=== PATIENT | female | born 1955 | race Caucasian/White ===

== ENCOUNTER → 2017-01-16 | Outpatient (CLI) | payer BC | LOC: MC.RAD 13:00 | DX: Z12.39 Encounter for other screening for malignant neoplasm of breast (principal) ==

== ENCOUNTER 2018-11-04 14:46 | Outpatient (RCR) | payer SELFPAY | END 2018-11-07 | disposition home or self-care (01) | LOC: COL.CR | DX: Z02.89 Encounter for other administrative examinations (principal) ==

== ENCOUNTER 2019-02-12 11:52 | Outpatient (RCR) | payer SELFPAY | END 2019-02-16 | disposition home or self-care (01) | LOC: COL.CR | DX: Z02.89 Encounter for other administrative examinations (principal) ==

== ENCOUNTER 2019-05-16 14:52 | Outpatient (RCR) | payer SELFPAY | END 2019-05-20 | disposition home or self-care (01) | LOC: COL.CR | DX: Z02.89 Encounter for other administrative examinations (principal) ==

== ENCOUNTER 2019-08-18 13:06 | Outpatient (RCR) | payer SELFPAY | END 2019-08-19 | disposition home or self-care (01) | LOC: COL.CR | DX: Z02.89 Encounter for other administrative examinations (principal) ==

== ENCOUNTER 2019-11-03 15:47 | Outpatient (RCR) | payer SELFPAY | END 2019-11-16 | disposition home or self-care (01) | LOC: COL.CR | DX: Z02.89 Encounter for other administrative examinations (principal) ==

== ENCOUNTER 2020-04-02 15:03 | Outpatient (RCR) | payer SELFPAY | END 2020-04-29 | disposition home or self-care (01) | LOC: COL.CR | DX: Z02.89 Encounter for other administrative examinations (principal) ==

== ENCOUNTER 2020-07-09 12:20 | Outpatient (RCR) | payer SELFPAY | END 2020-08-01 | disposition home or self-care (01) | LOC: COL.CR | DX: Z02.89 Encounter for other administrative examinations (principal) ==

== ENCOUNTER 2020-10-29 14:48 | Outpatient (RCR) | payer SELFPAY | END 2020-10-31 | disposition home or self-care (01) | LOC: COL.CR | DX: Z02.89 Encounter for other administrative examinations (principal) ==

== ENCOUNTER 2021-01-28 17:05 | Outpatient (RCR) | payer SELFPAY | END 2021-01-30 | disposition home or self-care (01) | LOC: COL.CR | DX: Z02.89 Encounter for other administrative examinations (principal) ==

== ENCOUNTER → 2021-11-23 | Outpatient (CLI) | payer MEDICARE, BC | LOC: MC.RAD 09:35 | DX: Z12.31 Encounter for screening mammogram for malignant neoplasm of breast (principal) ==

== ENCOUNTER 2021-11-30 14:42 | Outpatient (RCR) | payer SELFPAY | END 2021-12-01 | LOC: COL.CR | DX: Z29.8 Encounter for other specified prophylactic measures (principal) ==

== ENCOUNTER 2021-12-26 17:07 | Outpatient (RCR) | payer SELFPAY | END 2021-12-31 | LOC: COL.CR | DX: Z29.8 Encounter for other specified prophylactic measures (principal) ==

== ENCOUNTER 2022-01-27 14:28 | Outpatient (RCR) | payer SELFPAY | END 2022-01-31 | LOC: COL.CR | DX: Z29.8 Encounter for other specified prophylactic measures (principal) ==

== ENCOUNTER 2022-03-01 14:47 | Outpatient (RCR) | payer SELFPAY | END 2022-03-02 | LOC: COL.CR | DX: Z29.8 Encounter for other specified prophylactic measures (principal) ==

== ENCOUNTER 2022-03-15 14:39 | Outpatient (RCR) | payer SELFPAY ==
[2022-03-21] MEDS ORDERED: FLOMAX 0.40.4 MG/CAP PO (22:30)
[2022-03-21] MEDS ORDERED: MACROBID 1100 MG/CAP PO (22:30)
[2022-03-21] MEDS ORDERED: LACTAID3000 UNIT PO (22:30)
[2022-03-21] MEDS ORDERED: AMITRIPTYLINE H50 M1 PO (22:31)
[2022-03-21] MEDS ORDERED: SINGULAIR 110 MG/TAB PO (22:31)
[2022-03-21] MEDS ORDERED: CALCIUM 600MG+D1 TAB PO (22:31)
[2022-03-21] MEDS ORDERED: ATIVAN 1MG T1 MG/TAB PO (22:31)
[2022-03-21] MEDS ORDERED: SYNTHROID0.088 MG/T PO (22:31)
[2022-03-27] MEDS ORDERED: MOTRIN 600600 MG/TAB PO (14:18)
[2022-03-27] MEDS ORDERED: NORCO 325 MG-51 TAB PO (14:19)
[2022-03-27] MEDS ORDERED: COLACE 100100 MG/CAP PO (14:19)
[2022-03-27] MEDS ORDERED: INVANZ INJ1 G/VIAL IV (14:21)
== END 2022-04-02 ==
LOC: COL.CR
DX: Z29.8 Encounter for other specified prophylactic measures (principal)

== ENCOUNTER 2022-03-21 20:29 | Inpatient (IN) | payer MEDICARE, BC ==
[~2022-03-21] VITALS: Ht 167.6 cm; Wt 57.3 kg
[2022-03-21 20:44] LABS: HEMOGLOBIN 11.4 g/dl (12.5-16.0); MEAN CELL VOLUME 93 fl (80.0-100.0); MEAN CORPUSCULAR HEMOGLOBIN 32 pg (27-31); MEAN CORPUSCULAR HGB CONC 34 g/dl (33.0-37.0); MEAN PLATELET VOLUME 8.7 fl (7.4-10.4); PLATELET COUNT 232 K/mm3 (130-400); RED BLOOD COUNT 3.59 M/mm3 (4.10-5.30); REDCELL DISTRIBUTION WIDTH-CV 12.3 % (11.5-14.5)
[2022-03-21 20:52] LABS: HEMATOCRIT 33.2 % (37.0-47.0)
[2022-03-21 20:59] LABS: ALANINE AMINOTRANSFERASE 13 U/L (0-55); ALBUMIN 2.9 gm/dL (3.4-4.8); ALKALINE PHOSPHATASE 58 U/L (40-150); ANION GAP 12 mmol/L (7-16); AST,SGOT 13 U/L (5-34); BILIRUBIN,TOTAL 1.4 mg/dL (0.2-1.2); CALCIUM 8.2 mg/dL (8.4-10.2); CARBON DIOXIDE 20 mmol/L (23-31); CHLORIDE 99 mmol/L (98-107); CREATININE, serum 0.73 mg/dL (0.57-1.11); GLUCOSE 94 mg/dL (70-99); POTASSIUM 3.7 mmol/L (3.5-4.5); SODIUM 131 mmol/L (136-145); TOTAL PROTEIN 6.1 gm/dL (6.2-8.1)
[2022-03-21 21:04] LABS: TROPONIN-I < 0.010 ng/mL (0.00-0.033)
[2022-03-21 21:14] LABS: COLLECTION METHOD CLEAN CATCH
[2022-03-21 21:19] LABS: BLOOD UREA NITROGEN 14 mg/dL (10-20)
[2022-03-21 21:25] LABS: MUCOUS Present (NOT PRESENT); PH 5 (5-8); SQUAMOUS EPITHELIAL 0-2 /hpf (0-10); URINE APPEARANCE Hazy (CLEAR/HAZY); URINE BACTERIA None Seen /hpf (NONE SEEN); URINE BLOOD 2+ (NEGATIVE); URINE COLOR Yellow (YELLOW); URINE GLUCOSE Negative (NEGATIVE); URINE KETONE 1+ (NEGATIVE); URINE NITRATE Negative (NEGATIVE); URINE PROTEIN(semi-quant) 1+ (NEGATIVE); URINE UROBILINOGEN Negative (NEGATIVE)
[2022-03-21 22:07] LABS: BAND 8 % (0-10); LYMPHOCYTE 9 % (20.0-51.0); NEUTROPHILS 80 % (42.0-75.2); PLATELET ESTIMATE NORMAL (NORMAL)
[2022-03-21] MEDS ORDERED: FLOMAX 0.40.4 MG/CAP PO (22:30)
[2022-03-21] MEDS ORDERED: LACTAID3000 UNIT PO (22:30)
[2022-03-21] MEDS ORDERED: MACROBID 1100 MG/CAP PO (22:30)
[2022-03-21] MEDS ORDERED: SINGULAIR 110 MG/TAB PO (22:31)
[2022-03-21] MEDS ORDERED: SYNTHROID0.088 MG/T PO (22:31)
[2022-03-21] MEDS ORDERED: AMITRIPTYLINE H50 M1 PO (22:31)
[2022-03-21] MEDS ORDERED: CALCIUM 600MG+D1 TAB PO (22:31)
[2022-03-21] MEDS ORDERED: ATIVAN 1MG T1 MG/TAB PO (22:31)
[2022-03-21 23:33] VITALS: BP 90/50; PULSE 98; TEMP 99.2
--- NOTE | 2022-03-21 23:50 | NUR ---
THE PATIENT ARRIVED FROM ED AT THIS TIME. UPON ASSESSMENT, THE PATIENT HAD FLAGYL RUNNING INTO THE RIGHT FOREARM. FROM THE IV SITE TO HER FINGER TIPS APPEARED THOUGH SHE HAD A RED GLOVE ON. STOPPED THE INFUSION, CONTACTED DR. KERN WHO ORDERED BENADRYL AND PEPCID. THE PATIENT DENIED ANY PAIN OR DISCOMFORT AFTER THAT TIME. SHE DID STATE HAVING SOME ABDOMINAL PAIN, BUT NOT SEVERE DUE TO LAYING STILL IN BED. NO OTHER CONCERNS, WILL CONTINUE TO MONITOR.
[2022-03-22] VITALS (14 sets, daily range): BP systolic 89–122; BP diastolic 39–61; PULSE 86–98; TEMP 97.8–98.5
--- NOTE | 2022-03-22 07:00 | NUR ---
THE PATIENT HAD UNEVENTFUL NIGHT AFTER THE ALLERGIC REACTION TO FLAGYL. THIS MEDICATION WAS ADDED TO THE PATIENT'S ALLERGY LIST. DR. KERN PLANS TO SEE THIS PATIENT THIS MORNING FOR POSSIBLE LAP APPY. NO OTHER CONCERNS. REPORT GIVEN TO HARRY WEBB.
--- NOTE | 2022-03-22 08:00 | NUR ---
Shift assessment completed. Pt lying down in bed on right side due to abdominal pain. Peripheral line on right forearm CDI, no redness or edema. Folley catheter with clear, yellow urine secured on right leg. Pt instructed to remain NPO due to abdominal procedure. Call light within reach.
--- NOTE | 2022-03-22 10:27 | NUR ---
Initial visit; Patient thanked Hot Cell Technician for looking in on her. She is in a great deal of pain at this time. Hot Cell Technician will keep her in her prayers and will follow up when possible.
--- NOTE | 2022-03-22 15:55 | NUR ---
School Commissioner entered patient's room and patient was asleep as she had surgery earlier today. SW introduced herself to patient's , Star and asked him if she can ask him some intake questions. Star stated "I can't talk" and pointed to his head. RASHAWN advised she will return when patient is awake. RASHAWN spoke with RN who advised Star has history of stroke and has aphasia. Patient is normally independent, alert and oriented however is just drowsy from surgery. RASHAWN will follow up at a later time.
--- NOTE | 2022-03-22 18:00 | NUR ---
Patient has had an eventful day. Lap appy preformed. 3 incisions noted. Two incisions closed with surgical glue. Incisions well approximated with no signs of complications. 3rd incision has PRAVEENA drain inserted with a gauze dressing. Serosanguineous drainage noted. Beard catheter in place, securement device in place, no kinks in tubing. PRN tylenol given once this shift for abd pain rated a 3/10. Dynamap used to complete post op vitals. VSS. Patient drowsy but oriented. Patient currently resting in bed, at the bedside. Call light in reach.
[2022-03-23 07:28] VITALS: BP 127/68; PULSE 86; TEMP 98.2
--- NOTE | 2022-03-23 09:16 | NUR ---
Digital Imaging Technician met with patient to discuss discharge planning. Patient is tearful and advised her pain is making her "weepy". Patient has also had a lot of stressful events recently including her 's stroke and her mother's . Patient lives in [place] with her , Star and advised her two daughters Gila (ph#[phone]) and Era (ph#[phone]) live out of state however they are in town visiting right now. Patient sees Dr. Lopez for primary care and obtains medications from [facility] with no difficulties. Patient does not use any DME and is independent with ADLS. Patient thinks she has DPOA-HC at home. Discharge Plan: Home
[2022-03-23 11:34] VITALS: BP 122/90; PULSE 88; TEMP 98.4
[2022-03-23 13:45] LABS: BASO % 0.2 % (0.0-2.0); EOS % 0.1 % (0.0-4.0); GRAN % 83.4 % (42.2-75.2); HEMOGLOBIN 10.9 g/dl (12.5-16.0); LYMPH # 1.3 K/mm3 (1.2-3.4); LYMPH % 9.5 % (20.0-51.0); MEAN CELL VOLUME 94 fl (80.0-100.0); MEAN CORPUSCULAR HEMOGLOBIN 31 pg (27-31); MEAN CORPUSCULAR HGB CONC 34 g/dl (33.0-37.0); MONO # 0.8 K/mm3 (0.1-0.6); MONO % 6.3 % (1.7-9.3); PLATELET COUNT 271 K/mm3 (130-400); RED BLOOD COUNT 3.47 M/mm3 (4.10-5.30); REDCELL DISTRIBUTION WIDTH-CV 12.6 % (11.5-14.5)
[2022-03-23 13:46] LABS: HEMATOCRIT 32.5 % (37.0-47.0)
[2022-03-23 13:59] LABS: ALBUMIN 2.3 gm/dL (3.4-4.8); BILIRUBIN,TOTAL 0.5 mg/dL (0.2-1.2); CALCIUM 8.4 mg/dL (8.4-10.2); CREATININE, serum 0.58 mg/dL (0.57-1.11); POTASSIUM 4.3 mmol/L (3.5-4.5); TOTAL PROTEIN 5.8 gm/dL (6.2-8.1)
[2022-03-23 16:03] VITALS: BP 130/66; PULSE 90; TEMP 98
--- NOTE | 2022-03-23 17:00 | NUR ---
PATIENT TAKEN DOWN TO ED BY PCT TO VISIT WITH THAT IS IN THE ER A PATIENT AND BEING FLOWN OUT SOON. HOUSE SUP AWARE.
[2022-03-23 19:41] VITALS: BP 145/67; PULSE 86; TEMP 98.1
[2022-03-23 23:55] VITALS: BP 148/74; PULSE 77; TEMP 98.5
[2022-03-24 04:27] VITALS: BP 140/77; PULSE 88; TEMP 98.2
[2022-03-24 08:01] VITALS: BP 142/72; PULSE 81; TEMP 97.8
[2022-03-24 08:46] LABS: BASO % 0.1 % (0.0-2.0); EOS # 0.2 K/mm3 (0.0-0.7); EOS % 2.2 % (0.0-4.0); GRAN # 6.6 K/mm3 (1.4-6.5); GRAN % 70.8 % (42.2-75.2); HEMATOCRIT 35.5 % (37.0-47.0); LYMPH # 1.6 K/mm3 (1.2-3.4); LYMPH % 17.6 % (20.0-51.0); MEAN CELL VOLUME 93 fl (80.0-100.0); MEAN CORPUSCULAR HEMOGLOBIN 32 pg (27-31); MEAN CORPUSCULAR HGB CONC 34 g/dl (33.0-37.0); MONO # 0.8 K/mm3 (0.1-0.6); PLATELET COUNT 262 K/mm3 (130-400); REDCELL DISTRIBUTION WIDTH-CV 12.8 % (11.5-14.5)
[2022-03-24 09:00] LABS: ALBUMIN 2.3 gm/dL (3.4-4.8); CALCIUM 8.3 mg/dL (8.4-10.2); CREATININE, serum 0.59 mg/dL (0.57-1.11); PHOSPHOROUS 1.8 mg/dL (2.3-4.7); POTASSIUM 3.9 mmol/L (3.5-4.5)
--- NOTE | 2022-03-24 09:17 | NUR ---
Initial visit; Patient thanked Repossessor for looking in on her and offering her God's blessings. Patient was using telephone. Repossessor will follow-up.
--- NOTE | 2022-03-24 10:28 | NUR ---
PT RESTING IN BED WITH HOB ELEVATED, TAYLOR CATHETER HAS BEEN REMOVED, SCDs IN PLACE. NORCO ADMINISTERED FOR ABDOMINAL PAIN. PT STATES THAT PAIN IS EXACERBATED BY MOVEMENT. 2 LAP INCISIONS ARE WELL APPROXIMATED WITH SOME BRUISING. PRAVEENA DRAIN TO BULB SUCTION WITH SOME SHADOW DRAINAGE SEEN ON DRESSING. PRAVEENA HAS HAD LARGE AMOUNTS OF SEROUS DRAINAGE. IVF INFUSING. PT DENIES NEEDS. CALL LIGHT WITHIN REACH.
[2022-03-24 11:33] VITALS: BP 149/79; PULSE 85; TEMP 98.2
--- NOTE | 2022-03-24 13:30 | NUR ---
DRAIN SPONGE AROUND PRAVEENA DRAIN HAS BEEN CHANGED, WAS SATURATED IN SEROSANGUINEOUS DRAINAGE. IVF INFUSING. PT IS TEARFUL R/T FAMILY ISSUES, IS OFFERED [employer], DENIES @ THIS TIME.
--- NOTE | 2022-03-24 15:03 | NUR ---
Steel Die Printer met with patient who advised her was sent to Medical yesterday. Patient is tearful and states she has been through a lot recently. Patient stated Gabrielle Steel Die Printer at is working on rehab placement (ph#[phone]) and patient requested RASHAWN call to pending sale to [facility]. RASHAWN contacted Gabrielle and left a message.
[2022-03-24 16:00] VITALS: BP 172/80; PULSE 89; TEMP 97.3
--- NOTE | 2022-03-24 16:00 | NUR ---
PT'S DAUGHTER HAS CALLED, STATES THAT SHE IS UPSET THAT SHE WAS NOT CALLED WHEN DECISION WAS MADE TO PUT PICC LINE IN PLACE FOR IV ANTIBIOTICS. PT'S DAUGHTER CRYSTAL STATES THAT SHE FEELS THOUGH HER MOTHER IS NOT ORIENTED ENOUGH TO MAKE DECISIONS, THAT SHE WAS UNABLE TO RECALL DR. KERN TALKING TO HER YESTERDAY. PT HAS BEEN ALERT ET ORIENTED X4 TODAY BUT HAS BEEN TEARFUL ABOUT FAMILY NEWS, HAS NOT BEEN NOTED TO BE FORGETFUL. DR. KERN HAS BEEN CALLED ET STATES THAT HE WILL CALL ET TALK TO PT'S DAUGHTER CRYSTAL, PER HER REQUEST.
--- NOTE | 2022-03-24 16:13 | NUR ---
PT HAS NOT YET VOIDED. AIV IS IN PT ROOM INSERTING PICC @ THIS TIME, WILL BLADDER SCAN PT WHEN FINISHED. NEW PHONE ORDERS RECEIVED FROM DR. KERN TO INSERT TAYLOR CATHETER IF PT BLADDER SCAN IS >500 ML OR IF PT HAS NOT VOIDED IN 8 HRS.
--- NOTE | 2022-03-24 16:42 | NUR ---
PT HAS VOIDED IN TOILET WITHOUT DIFFICULTIES, 500 ML, URINE IS CLEAR ET YELLOW. PT IS BEING ASSISTED TO AMBULATE IN HALLWAY WITH DAUGHTER @ THIS TIME. IVF INFUSING. PRAVEENA DRAIN IS IN PLACE, DRAINAGE IS SEROUS YELLOW. INCISIONS ARE WELL APPROXIMATED. PT HAS BEEN GIVEN PAIN MEDICATION, DENIES NAUSEA. CALL LIGHT WITHIN REACH.
[2022-03-24 22:05] VITALS: BP 139/71; PULSE 86; TEMP 98
--- NOTE | 2022-03-24 22:59 | NUR ---
Patient assessed around 2029. Given PRN [place] for pain. Ambulated to bathroom, slow, steady gait. IV fluids continue per orders. PRAVEENA drain to abdomen, serous drainage. Urinating, clear yellow urine. Patient voices no questions, needs, or concerns at this time. In bed with call light within reach.
[2022-03-25] VITALS (7 sets, daily range): BP systolic 136–154; BP diastolic 65–79; PULSE 67–99; TEMP 97.8–99.2
--- NOTE | 2022-03-25 05:10 | NUR ---
Patient given PRN [place] twice during the night as requested for pain to abdomen. Has had about 225 mls of output from PRAVEENA drain this shift. Continues on IV fluids and ABX per orders. Patient reports that PRN Ativan was effective with helping with anxiety and patient was able to get some rest during the night. Has been able to urinate this shift. Voices no questions, needs, or concerns at this time. In bed with call light within reach.
[2022-03-25 06:16] LABS: BASO % 0.4 % (0.0-2.0); EOS # 0.4 K/mm3 (0.0-0.7); EOS % 3.6 % (0.0-4.0); GRAN # 6.9 K/mm3 (1.4-6.5); GRAN % 65.4 % (42.2-75.2); LYMPH % 19.2 % (20.0-51.0); MEAN CELL VOLUME 95 fl (80.0-100.0); MEAN CORPUSCULAR HEMOGLOBIN 31 pg (27-31); MEAN CORPUSCULAR HGB CONC 33 g/dl (33.0-37.0); MEAN PLATELET VOLUME 9.3 fl (7.4-10.4); MONO # 1.1 K/mm3 (0.1-0.6); MONO % 10.5 % (1.7-9.3); PLATELET COUNT 319 K/mm3 (130-400); RED BLOOD COUNT 3.83 M/mm3 (4.10-5.30); REDCELL DISTRIBUTION WIDTH-CV 12.7 % (11.5-14.5)
[2022-03-25 06:21] LABS: HEMATOCRIT 36.2 % (37.0-47.0)
[2022-03-25 06:38] LABS: ALBUMIN 2.4 gm/dL (3.4-4.8); CALCIUM 8.3 mg/dL (8.4-10.2); CREATININE, serum 0.55 mg/dL (0.57-1.11); PHOSPHOROUS 2.9 mg/dL (2.3-4.7); POTASSIUM 3.9 mmol/L (3.5-4.5)
--- NOTE | 2022-03-25 17:40 | NUR ---
PT HAD A CALM DAY,MEDS GIVEN PRESCRIBED NO ADVERSE REACTION NOTED, PT NOW ON FULL LIQUID DIET.COMPLAINTS OF ABDOMINAL PAIN RAISED PRN PAIN MEDS GIVEN PRESCRIBED.
--- NOTE | 2022-03-25 22:57 | NUR ---
Patient assessed around 2129. Given PRN [place] for pain and PRN Ativan as requested. PRAVEENA drain continues to have serous drainage. Voices no questions, needs, or concerns at this time. In bed with call light within reach. IV fluids and ABX continue per orders.
[2022-03-26 03:18] VITALS: BP 139/64; PULSE 88; TEMP 98.4
--- NOTE | 2022-03-26 06:14 | NUR ---
Patient has had no further complaints of pain or discomfort this shift. Continues on IV fluid and ABX per orders. Labs drawn and given to lab. Voices no questions, needs, or concerns at this time. In bed with call light within reach.
[2022-03-26 06:39] LABS: MEAN CELL VOLUME 93 fl (80.0-100.0); MEAN CORPUSCULAR HEMOGLOBIN 31 pg (27-31); MEAN CORPUSCULAR HGB CONC 34 g/dl (33.0-37.0); MEAN PLATELET VOLUME 9.1 fl (7.4-10.4); PLATELET COUNT 305 K/mm3 (130-400); RED BLOOD COUNT 3.51 M/mm3 (4.10-5.30); REDCELL DISTRIBUTION WIDTH-CV 12.4 % (11.5-14.5)
[2022-03-26 06:49] LABS: HEMATOCRIT 32.7 % (37.0-47.0)
[2022-03-26 06:52] LABS: ALBUMIN 2.2 gm/dL (3.4-4.8); BILIRUBIN,TOTAL 0.4 mg/dL (0.2-1.2); CALCIUM 7.9 mg/dL (8.4-10.2); CREATININE, serum 0.52 mg/dL (0.57-1.11); POTASSIUM 3.8 mmol/L (3.5-4.5); TOTAL PROTEIN 5.1 gm/dL (6.2-8.1)
[2022-03-26 07:00] VITALS: BP 147/69; PULSE 90; TEMP 98.5
--- NOTE | 2022-03-26 07:26 | NUR ---
PT RESTING IN BED , AWAKE AT THIS TIME, ASKS FOR PAIN MEDICATION, COMPLAINTS OF ABD PAIN, RATES IT AT 4/10.REPORTS PASSING GAS BUT NO BOWEL MOVEMENT YET
[2022-03-26 07:49] LABS: EOSINOPHIL 6 % (0-4); LYMPHOCYTE 24 % (20.0-51.0); NEUTROPHILS 62 % (42.0-75.2); PLATELET ESTIMATE NORMAL (NORMAL)
[2022-03-26 12:00] VITALS: BP 132/61; PULSE 89
--- NOTE | 2022-03-26 18:30 | NUR ---
PATIENT HAD A CALM DAY, DUE MEDICATON GIVEN, PRAVEENA DRAIN DISCONTINUED, IVF DISCONTINUED, PT NOW ON GENERAL DIET. DENIES COMPLAINTS OF PAIN.
--- NOTE | 2022-03-26 19:00 | NUR ---
The patient is laying in bed at this time. She is wanting to go to sleep early tonight and has requested sleeping medication. PRAVEENA site is CDI, no drainage on the dressing. No other concerns at this time. Assessment completed.
[2022-03-26 19:17] VITALS: BP 146/65; PULSE 86; TEMP 97.8
[2022-03-26 23:30] VITALS: BP 128/56; PULSE 77; TEMP 99.1
[2022-03-27 03:32] VITALS: BP 152/86; PULSE 90; TEMP 97.5
--- NOTE | 2022-03-27 07:00 | NUR ---
The patient had uneventful night. Slept very well. She is hoping to get out of the hospital today to go to [facility] to see her who is hospitalized there. PRAVEENA drain site remains CDI. Pt states that she wants her [place] every 4 hours, This RN reminded her that she will need to call when she is having pain that she feels she needs a pain medication for. No other concerns. The patient did have a small bowel movement this shift. Report given to HARRY Duckworth.
[2022-03-27 07:45] VITALS: BP 153/70; PULSE 94; TEMP 97.4
[2022-03-27 11:12] VITALS: BP 146/72; PULSE 86; TEMP 98.1
[2022-03-27] MEDS ORDERED: MOTRIN 600600 MG/TAB PO (14:18)
[2022-03-27] MEDS ORDERED: NORCO 325 MG-51 TAB PO (14:19)
[2022-03-27] MEDS ORDERED: COLACE 100100 MG/CAP PO (14:19)
[2022-03-27] MEDS ORDERED: INVANZ INJ1 G/VIAL IV (14:21)
--- NOTE | 2022-03-27 16:52 | NUR ---
Grants Specialist received referral as patient will need outpatient IV antibiotics. RASHAWN met with patient and her daughter Gila to review options of home antibiotics vs outpatient antibiotics through [facility]. RASHAWN advised that Home Health would provide education, however patient would have to independently administer the antibiotics. Patient and Gila agree that doing the antibiotics at [facility] would be best as patient lives alone. Gila advised they still would like Home Health/Private Duty services and want to use [facility]. Patient to discharge today. RASHAWN faxed referral and orders to Pa at [facility]. RASHAWN contacted the [facility] and faxed referral/orders. Patient's appointments will be daily at 0830. RASHAWN provided this appointment time to patient, patient's daughter, RN, and superintendent ammunition storage.
[2022-03-27 17:05] VITALS: BP 131/59; PULSE 75; TEMP 97.8
--- NOTE | 2022-03-27 20:15 | NUR ---
Patient deemed fit for discharge. Caps changed on PICC line. Discharge instruction/education given. Patient denies any questions at this. VSS. Patient denies any pain, discomfort, SOA, or further needs at this time. Patient ambulated from building escorted by [facility]. Daughter transporting home.
== END 2022-03-27 18:00 | disposition home or self-care (01) | DRG 339 ==
LOC: COL.ER 20:29 → MEDICAL 22:39
PROVIDERS: Emergency Medicine; Surgery; ADMIT Surgery
PROC: 0DTJ4ZZ Resection of Appendix, Percutaneous Endoscopic Approach (ICD-10-PCS; principal; 2022-03-22 10:00)
PROC: 02HV33Z Insertion of Infusion Device into Superior Vena Cava, Percutaneous Approach (ICD-10-PCS; 2022-03-24)
DX: K35.33 Acute appendicitis with perforation, localized peritonitis, and gangrene, with abscess (principal); N39.0 Urinary tract infection, site not specified; M35.00 Sjogren syndrome, unspecified; Z20.822 Contact with and (suspected) exposure to COVID-19; D72.829 Elevated white blood cell count, unspecified; J30.2 Other seasonal allergic rhinitis; F41.9 Anxiety disorder, unspecified; G47.00 Insomnia, unspecified; E03.9 Hypothyroidism, unspecified; K59.00 Constipation, unspecified; Z88.1 Allergy status to other antibiotic agents; Z88.0 Allergy status to penicillin; Z88.2 Allergy status to sulfonamides; Z88.8 Allergy status to other drugs, medicaments and biological substances; Z86.010 Personal history of colon polyps; Z79.890 Hormone replacement therapy
CPT/HCPCS: C1751; C1892; C9113; J0692; J0694; J0696; J1100; J1200; J1335; J1650; J2185; J2270; J2405; J2704; J3010; J3480; J7120; Q9967

== ENCOUNTER → 2022-04-02 | Outpatient (RCR) | payer MEDICARE, BC ==
[2022-03-28 09:56] VITALS: BP 136/66; PULSE 79; TEMP 98.2
--- NOTE | 2022-03-28 14:00 | NUR ---
Dr Escalera's office calls stating pt's will be having critical surgery tomorrow at and pt would like to visit him. Nurse states that Dr Escalera is aware of this, and gave verbal ok that pt could recieve IV abx late in the day to allow her to travel to . Appt time adjusted.
[2022-03-29 16:38] VITALS: BP 123/63; PULSE 80; TEMP 98.1
[2022-03-30 09:07] VITALS: BP 124/73; PULSE 76; TEMP 98.5
[2022-03-31 09:20] VITALS: BP 127/70; PULSE 72; TEMP 98.6
[2022-04-01 09:15] VITALS: BP 132/76; PULSE 66; TEMP 97.4
[~2022-04-02] VITALS: Ht 167.6 cm; Wt 64.9 kg
[~2022-04-02] MED LIST: AMITRIPTYLINE H50 M1 PO; ATIVAN 1MG T1 MG/TAB PO; CALCIUM 600MG+D1 TAB PO; COLACE 100100 MG/CAP PO; FLOMAX 0.40.4 MG/CAP PO; INVANZ INJ1 G/VIAL IV; LACTAID3000 UNIT PO; MACROBID 1100 MG/CAP PO; MOTRIN 600600 MG/TAB PO; NORCO 325 MG-51 TAB PO; SINGULAIR 110 MG/TAB PO; SYNTHROID0.088 MG/T PO
[2022-04-02 09:05] VITALS: BP 115/69; PULSE 79; TEMP 97.9
== END | disposition home or self-care (01) ==
LOC: EUO
DX: Z51.81 Encounter for therapeutic drug level monitoring (principal)
CPT/HCPCS: J1335

== ENCOUNTER 2022-04-03 07:06 | Outpatient (RCR) | payer SELFPAY | END 2022-05-03 | LOC: COL.CR | DX: Z29.8 Encounter for other specified prophylactic measures (principal) ==

== ENCOUNTER 2022-04-06 13:00 | Outpatient (RCR) | payer MEDICARE, BC ==
[2022-04-03 08:54] VITALS: BP 109/66; PULSE 75; TEMP 97.8
[2022-04-03 09:01] LABS: HEMOGLOBIN 10.9 g/dl (12.5-16.0); MEAN CELL VOLUME 96 fl (80.0-100.0); MEAN CORPUSCULAR HEMOGLOBIN 31 pg (27-31); MEAN CORPUSCULAR HGB CONC 32 g/dl (33.0-37.0); MEAN PLATELET VOLUME 8.6 fl (7.4-10.4); PLATELET COUNT 517 K/mm3 (130-400); RED BLOOD COUNT 3.52 M/mm3 (4.10-5.30); REDCELL DISTRIBUTION WIDTH-CV 13.1 % (11.5-14.5)
[2022-04-03 09:08] LABS: HEMATOCRIT 33.9 % (37.0-47.0)
[2022-04-03 09:14] LABS: ALANINE AMINOTRANSFERASE 30 U/L (0-55); ALKALINE PHOSPHATASE 52 U/L (40-150); ANION GAP 10 mmol/L (7-16); AST,SGOT 20 U/L (5-34); BLOOD UREA NITROGEN 4 mg/dL (10-20); CALCIUM 8.5 mg/dL (8.4-10.2); CARBON DIOXIDE 25 mmol/L (23-31); CHLORIDE 104 mmol/L (98-107); CREATININE, serum 0.63 mg/dL (0.57-1.11); GLUCOSE 85 mg/dL (70-99); POTASSIUM 3.9 mmol/L (3.5-4.5); SODIUM 139 mmol/L (136-145); TOTAL PROTEIN 6.7 gm/dL (6.2-8.1)
[2022-04-03 09:28] LABS: BILIRUBIN,TOTAL < 0.5 mg/dL (0.2-1.2)
[2022-04-04 13:02] VITALS: BP 107/65; PULSE 77; TEMP 98.6
[2022-04-05 13:19] VITALS: BP 110/67; PULSE 79; TEMP 97.9
[~2022-04-06] VITALS: Ht 167.6 cm; Wt 56.7 kg
[2022-04-06 13:09] VITALS: BP 113/57; PULSE 82; TEMP 97.9
--- NOTE | 2022-04-06 14:13 | NUR ---
Pt remained in bed for 30 mins following PICC line removal. Dressing remains clean, dry and intact. She ambulates out of dept to go to [facility] to visit her .
== END 2022-04-06 14:14 | disposition home or self-care (01) ==
LOC: EUO 13:00
PROVIDERS: Internal Medicine Infectious Disease
DX: Z45.2 Encounter for adjustment and management of vascular access device (principal); N39.0 Urinary tract infection, site not specified; K35.33 Acute appendicitis with perforation, localized peritonitis, and gangrene, with abscess
CPT/HCPCS: J1335

== ENCOUNTER → 2024-05-21 | Outpatient (CLI) | payer MEDICARE, BC | LOC: MC.RAD 09:15 | DX: Z12.31 Encounter for screening mammogram for malignant neoplasm of breast (principal) ==